=== PATIENT | female | born 1930 | race Hispanic/Latino ===

== ENCOUNTER 2017-05-23 11:22 | Emergency (ER) | payer SELFPAY ==
[~2017-05-23] VITALS: Ht 160 cm; Wt 55.0 kg
[2017-05-23 12:03] LABS: HEMATOCRIT 41.5 % (37.0-47.0); HEMOGLOBIN 13.8 g/dl (12.0-16.0); IMMATURE GRANULOCYTES 0.2 % (0.0-1.0); MEAN CELL VOLUME 91.8 fL CALC (80.0-100.0); MEAN CORPUSCULAR HGB 30.5 pG CALC (26.0-32.0); MEAN CORPUSCULAR HGB CONC 33.3 g/L CALC (32.0-36.0); NEUT# 2.92 thou/uL (2.00-7.15); RED BLOOD COUNT 4.52 mill/uL (4.20-5.60); RED CELL DISTRI WIDTH 12.1 % (11.5-15.5)
[2017-05-23 12:40] LABS: ALBUMIN 4.1 g/dL (3.2-5.0); ALKALINE PHOSPHATASE 84 u/l (38-126); AMYLASE 68 u/l (30-110); ANION GAP 14 (6-22 (CALC)); BILIRUBIN, TOTAL 0.7 mg/dL (0.0-1.4); BUN 13 mg/dL (8-23); BUN/CREATININE RATIO 25 (12-20 (CALC)); CALCIUM 9.3 mg/dL (8.4-10.2); CARBON DIOXIDE 29 mmol/l (22-30); CHLORIDE 99 mmol/l (95-108); CREATININE 0.5 mg/dL (0.5-1.0); GFR > 60 ML/MIN (>=60 (CALC)); GFR FOR AFR.AMER. > 60 ML/MIN (>=60 (CALC)); GLUCOSE 333 mg/dL (82-115); LIPASE 39 u/l (23-300); POTASSIUM 3.9 mmol/l (3.5-5.1); SGOT/AST 28 u/l (9-36); SGPT/ALT 28 u/l (11-66); SODIUM 138 mmol/l (137-146); TOTAL PROTEIN 7.6 g/dL (6.3-8.2)
[2017-05-23 12:40] LABS: URINE BILIRUBIN - DIPSTICK NEGATIVE (NEGATIVE); URINE BLOOD DIPSTICK TRACE-INTACT (NEGATIVE); URINE CLARITY CLEAR; URINE COLOR YELLOW; URINE GLUCOSE - DIPSTICK 250 mg/dL (NEGATIVE); URINE KETONE NEGATIVE (NEGATIVE); URINE LEUK ESTERASE NEGATIVE (NEGATIVE); URINE NITRITE - DIPSTICK NEGATIVE (Negative); URINE PROTEIN - DIPSTICK NEGATIVE (NEG-TRACE); URINE SPECIFIC GRAVITY <=1.005; URINE UROBILINOGEN - DIPSTICK 0.2 E.U./dL (0.2)
[2017-05-23] MEDS ORDERED: PREVACID30 M1 PO (15:14)
[2017-05-23 15:53] VITALS: BP 186/79
== END 2017-05-23 15:53 | disposition home or self-care (01) | DRG 392 ==
LOC: ED 11:22
PROVIDERS: Emergency Medicine
DX: K29.70 Gastritis, unspecified, without bleeding (principal); E11.65 Type 2 diabetes mellitus with hyperglycemia; I10 Essential (primary) hypertension; Z91.14 Patient's other noncompliance with medication regimen

== ENCOUNTER 2018-03-02 15:10 | Inpatient (IN) | payer SELFPAY ==
[~2018-03-02] VITALS: Ht 160 cm; Wt 45.0 kg
[~2018-03-02 15:10] MED LIST: PREVACID30 M1 PO
[2018-03-02 16:31] LABS: HEMATOCRIT 42.7 % (37.0-47.0); HEMOGLOBIN 14.5 g/dl (12.0-16.0); IMMATURE GRANULOCYTES 0.3 % (0.0-5.0); MEAN CELL VOLUME 87.7 fL CALC (80.0-100.0); MEAN CORPUSCULAR HGB 29.8 pG CALC (26.0-32.0); NEUT# 8.33 thou/uL (2.00-7.15); RED BLOOD COUNT 4.87 mill/uL (4.20-5.60)
[2018-03-02 16:45] LABS: INFLUENZA A NONE DETECTED (NONE DETECT); INFLUENZA B NONE DETECTED (NONE DETECT)
[2018-03-02 17:25] LABS: ALBUMIN 3.9 g/dL (3.2-5.0); ANION GAP 17 (6-22 (CALC)); BILIRUBIN, TOTAL 2.4 mg/dL (0.0-1.4); BUN 23 mg/dL (8-23); BUN/CREATININE RATIO 33 (12-20 (CALC)); CARBON DIOXIDE 25 mmol/l (22-30); CHLORIDE 102 mmol/l (95-108); CREATININE 0.7 mg/dL (0.5-1.0); GFR > 60 ML/MIN (>=60 (CALC)); GFR FOR AFR.AMER. > 60 ML/MIN (>=60 (CALC)); SGPT/ALT 496 u/l (11-66); SODIUM 140 mmol/l (137-146); TOTAL PROTEIN 7.8 g/dL (6.3-8.2)
[2018-03-02 17:32] LABS: ALKALINE PHOSPHATASE 264 u/l (38-126); SGOT/AST 1042 u/l (9-36)
[2018-03-02 17:37] LABS: MYOGLOBIN 62 ng/mL (0 - 62)
[2018-03-02 17:44] LABS: URINE BILIRUBIN - DIPSTICK NEGATIVE (NEGATIVE); URINE BLOOD DIPSTICK NEGATIVE (NEGATIVE); URINE COLOR YELLOW; URINE GLUCOSE - DIPSTICK >=1000 mg/dL (NEGATIVE); URINE KETONE TRACE mg/dL (NEGATIVE); URINE LEUK ESTERASE NEGATIVE (NEGATIVE); URINE NITRITE - DIPSTICK NEGATIVE (Negative); URINE PROTEIN - DIPSTICK NEGATIVE (NEG-TRACE); URINE SPECIFIC GRAVITY 1.015
[2018-03-02 17:45] LABS: URINE CLARITY CLEAR
[2018-03-02 19:25] VITALS: BP 75/50
[2018-03-02 22:24] LABS: HEMOGLOBIN 12.6 g/dl (12.0-16.0); MEAN CELL VOLUME 94.6 fL CALC (80.0-100.0); MEAN CORPUSCULAR HGB 29.8 pG CALC (26.0-32.0); MEAN CORPUSCULAR HGB CONC 31.5 g/L CALC (32.0-36.0); RED BLOOD COUNT 4.23 mill/uL (4.20-5.60); RED CELL DISTRI WIDTH 12.9 % (11.5-15.5)
[2018-03-02 22:37] LABS: BUN 20 mg/dL (8-23); BUN/CREATININE RATIO 20 (12-20 (CALC)); CHLORIDE 114 mmol/l (95-108); GFR 52 ML/MIN (>=60 (CALC)); GFR FOR AFR.AMER. > 60 ML/MIN (>=60 (CALC)); POTASSIUM 3.8 mmol/l (3.5-5.1); SODIUM 145 mmol/l (137-146)
[2018-03-02 22:38] LABS: ANION GAP 22 (6-22 (CALC))
[2018-03-02 22:39] LABS: CARBON DIOXIDE 13 mmol/l (22-30)
== END 2018-03-03 01:35 | disposition expired | DRG 871 ==
LOC: ED 15:10 → ED-I 17:30 → ED 18:19 → ICU 18:20
PROVIDERS: Emergency Medicine; ADMIT Internal Medicine; ATTEND Internal Medicine
PROC: 5A09357 Assistance with Respiratory Ventilation, Less than 24 Consecutive Hours, Continuous Positive Airway Pressure (ICD-10-PCS; principal; 2018-03-02)
DX: A41.9 Sepsis, unspecified organism (principal); R65.21 Severe sepsis with septic shock; E87.2 Acidosis; E11.9 Type 2 diabetes mellitus without complications; Z66 Do not resuscitate